=== PATIENT | female | born 1960 | race Caucasian/White ===

== ENCOUNTER 2023-10-25 05:55 | Inpatient (IN) | payer OTHER ==
[2023-10-24 14:48] VITALS: BP 132/64; TEMP 97.4; O2SAT 95
[2023-10-25] VITALS (8 sets, daily range): BP systolic 115–132; BP diastolic 57–66; TEMP 97.9–98.4; O2SAT 92–99
[~2023-10-25] VITALS: Ht 162.6 cm; Wt 76.7 kg
[~2023-10-25 05:55] MED LIST: ATOR1TAB21 PO; ENAL1TAB50 PO; GNPTAB37 PO; OMEP40CA4 PO
[2023-10-25] MEDS ORDERED: LIDOCAINE 2% 100MG/5ML SDV (FOR ANES.) As Ordered ONE (07:18)
[2023-10-25] MEDS ORDERED: fentaNYL 100 MCG/2 ML INJECTION As Ordered ONE (07:18)
[2023-10-25] MEDS ORDERED: ROCURONIUM BROMIDE 50MG/5ML VIAL As Ordered ONE (07:18)
[2023-10-25] MEDS ORDERED: propofoL 200 MG/20 ML VIAL As Ordered ONE (07:18)
[2023-10-25] MEDS ORDERED: MIDAZOLAM INJ 2MG/2ML VIAL As Ordered ONE (07:19)
[2023-10-25] MEDS: LR 1,000 ML IV SCH ×2 (07:20→20:04)
[2023-10-25] MEDS ORDERED: OMEP1CAP73 PO (07:24)
[2023-10-25] MEDS ORDERED: HOME MED LIST COMPLETE! XX SCH (07:30)
[2023-10-25] MEDS: ceFAZolin 2 GM/D5W 50 ML IV BAG As Ordered ONE (07:33)
[2023-10-25] MEDS ORDERED: ONDANSETRON 4MG 2ML VIAL IV PRN ×2 (07:45→10:30)
[2023-10-25] MEDS ORDERED: PERCOCET 5MG/325MG TAB PO PRN (07:45)
[2023-10-25] MEDS: ceFAZolin SOD 2 GM in IV 1 EA IV ONE (07:52)
[2023-10-25] MEDS ORDERED: HYDROmorphone HCL 2MG/ML 1ML VIAL As Ordered ONE (07:54)
[2023-10-25] MEDS ORDERED: PHENYLephrine 500MCG 5ML (100MCG/ML) SYRINGE As Ordered ONE (08:18)
[2023-10-25] MEDS ORDERED: ONDANSETRON 4MG 2ML VIAL As Ordered ONE (08:21)
[2023-10-25] MEDS ORDERED: ACETAMINOPHEN 1000MG 100ML IV BAG As Ordered ONE (08:21)
[2023-10-25] MEDS ORDERED: SUGAMMADEX SODIUM 500 MG/5 ML VIAL (BRIDION) As Ordered ONE (08:21)
[2023-10-25] MEDS ORDERED: GLYCOPYRROLATE INJ 0.2 MG/ML 2 ML VIAL As Ordered ONE (08:22)
[2023-10-25] MEDS ORDERED: ePHEDrine SULFATE 25 MG/5 ML(5MG/ML) SYRINGE As Ordered ONE (08:24)
[2023-10-25] MEDS ORDERED: SCOPOLAMINE 1MG TRANSDERMAL PATCH As Ordered ONE (08:26)
[2023-10-25] MEDS ORDERED: METOCLOPRAMIDE INJ 10MG/2ML VIAL As Ordered ONE (08:32)
[2023-10-25] MEDS: MANNITOL 25% 12.5GM 50ML VIAL As Ordered ONE (08:57)
[2023-10-25] MEDS: LIDOCAINE 1% SDV 30ML VIAL As Ordered ONE (10:21)
[2023-10-25] MEDS ORDERED: HYDROMORPHONE HCL 0.5 MG/ 0.5 ML SYRINGE IV PRN (10:30)
[2023-10-25] MEDS: fentaNYL 100 MCG/2 ML INJECTION IV PRN (10:35)
[2023-10-25 11:37] LABS: HEMATOCRIT 43.2 % (36.0-47.0); HEMOGLOBIN 13.6 g/dl (12.0-15.5); MEAN CORPUSCULAR HEMOGLOBIN 27.7 pg (27.0-33.0); MEAN CORPUSCULAR HGB CONC 31.5 g/dl (32.0-36.5); PLATELET COUNT, AUTOMATED 252 10^3/uL (150-450); RED BLOOD COUNT 4.91 10^6/uL (4.00-5.40); WHITE BLOOD COUNT 9.8 10^3/uL (4.0-10.0)
[2023-10-25] MEDS: oxyCODONE 5MG TAB PO PRN (11:48)
[2023-10-25 12:02] LABS: BLOOD UREA NITROGEN 7 MG/DL (9-23); CARBON DIOXIDE LEVEL 24 MMOL/L (20-31); CHLORIDE LEVEL 106 MMOL/L (98-107); GLOMERULAR FILTRATION RATE > 60.0 (>45); GLUCOSE, FASTING 134 MG/DL (74-106); POTASSIUM SERUM 4.2 MMOL/L (3.5-5.1); SODIUM LEVEL 141 MMOL/L (136-145)
[2023-10-25] MEDS: NS 1,000 ML IV SCH (14:52)
[2023-10-25] MEDS: ceFAZolin SOD 1 GM in D5W MINI-BAG PLUS 50 ML IV SCH (16:35)
[2023-10-25] MEDS: DOCUSATE SODIUM 100MG CAPSULE PO SCH (20:50)
[2023-10-26] MEDS: PERCOCET 5MG/325MG TAB PO PRN (00:50)
[2023-10-26 01:30] VITALS: BP 123/66; O2SAT 94
[2023-10-26 04:00] VITALS: BP 132/68; TEMP 97.9; O2SAT 94
[2023-10-26 07:08] LABS: HEMATOCRIT 37.7 % (36.0-47.0); MEAN CORPUSCULAR HEMOGLOBIN 27.8 pg (27.0-33.0); MEAN CORPUSCULAR HGB CONC 31.8 g/dl (32.0-36.5); MEAN CORPUSCULAR VOLUME 87.5 fl (80.0-96.0); PLATELET COUNT, AUTOMATED 244 10^3/uL (150-450); RED BLOOD COUNT 4.31 10^6/uL (4.00-5.40); WHITE BLOOD COUNT 10.3 10^3/uL (4.0-10.0)
[2023-10-26 07:19] LABS: BLOOD UREA NITROGEN 8 MG/DL (9-23); CALCIUM LEVEL 8.5 MG/DL (8.3-10.6); CARBON DIOXIDE LEVEL 24 MMOL/L (20-31); CHLORIDE LEVEL 105 MMOL/L (98-107); CREATININE FOR GFR 0.95 MG/DL (0.55-1.30); GLOMERULAR FILTRATION RATE > 60.0 (>45); GLUCOSE, FASTING 90 MG/DL (74-106); POTASSIUM SERUM 4.3 MMOL/L (3.5-5.1); SODIUM LEVEL 139 MMOL/L (136-145)
[2023-10-26 08:00] VITALS: BP 134/67; TEMP 98.4; O2SAT 95
[2023-10-26] MEDS: ENALAPRIL MALEATE 10 MG TAB PO SCH (09:14)
[2023-10-26] MEDS: ATORVASTATIN 20 MG TAB PO SCH (09:14)
[2023-10-26] MEDS: ACETAMINOPHEN TAB 650MG DOSE (2X325MG) PO PRN (09:14)
[2023-10-26] MEDS: OMEPRAZOLE 20MG CAP PO SCH (09:15)
[2023-10-26 12:00] VITALS: BP 120/63; TEMP 97.9; O2SAT 98
[2023-10-26 14:00] VITALS: BP 116/59; TEMP 97.7; O2SAT 100
[2023-10-26] MEDS ORDERED: PERCOCET PO (16:08)
== END 2023-10-26 16:40 | disposition home or self-care (01) | DRG 658 ==
LOC: M OR 05:55 → M MS5PR 14:15
PROVIDERS: ADMIT Urology; ATTEND Urology
PROC: 8E0W4CZ Robotic Assisted Procedure of Trunk Region, Percutaneous Endoscopic Approach (ICD-10-PCS; 2023-10-25)
PROC: 0TB04ZZ Excision of Right Kidney, Percutaneous Endoscopic Approach (ICD-10-PCS; principal; 2023-10-25 07:30)
DX: C64.1 Malignant neoplasm of right kidney, except renal pelvis (principal); N28.1 Cyst of kidney, acquired; I10 Essential (primary) hypertension; E78.5 Hyperlipidemia, unspecified; Z87.442 Personal history of urinary calculi; I73.00 Raynaud's syndrome without gangrene; Z91.02 Food additives allergy status

== ENCOUNTER → 2023-11-08 | Outpatient (CLI) | payer OTHER ==
[~2023-11-08] MED LIST changes: +OMEP1CAP73 PO; +PERCOCET PO
[2023-11-08 18:30] LABS: HEMATOCRIT 35.2 % (36.0-47.0); HEMOGLOBIN 11.2 g/dl (12.0-15.5); MEAN CORPUSCULAR HEMOGLOBIN 27.7 pg (27.0-33.0); MEAN CORPUSCULAR HGB CONC 31.8 g/dl (32.0-36.5); MEAN CORPUSCULAR VOLUME 86.9 fl (80.0-96.0); PLATELET COUNT, AUTOMATED 554 10^3/uL (150-450); RED BLOOD COUNT 4.05 10^6/uL (4.00-5.40); WHITE BLOOD COUNT 8.6 10^3/uL (4.0-10.0)
[2023-11-08 18:41] LABS: BLOOD UREA NITROGEN 13 MG/DL (9-23); CALCIUM LEVEL 9.6 MG/DL (8.3-10.6); CARBON DIOXIDE LEVEL 30 MMOL/L (20-31); CHLORIDE LEVEL 105 MMOL/L (98-107); GLOMERULAR FILTRATION RATE > 60.0 (>45); GLUCOSE, FASTING 93 MG/DL (74-106); SODIUM LEVEL 140 MMOL/L (136-145)
== END ==
LOC: M PLALAB 15:50
PROVIDERS: ATTEND Urology
DX: C64.1 Malignant neoplasm of right kidney, except renal pelvis (principal)

== ENCOUNTER → 2024-06-26 | Outpatient (CLI) | payer OTHER | LOC: M PLAIMG 14:26 | PROVIDERS: ATTEND Urology | DX: C64.1 Malignant neoplasm of right kidney, except renal pelvis (principal) ==